=== PATIENT | male | born 1950 | race Caucasian/White ===

== ENCOUNTER 2016-07-06 16:55 | Inpatient (IN) | payer OTHER, MEDICARE ==
[~2016-07-06] VITALS: Ht 190.5 cm; Wt 181.4 kg
[~2016-07-06 16:55] MED LIST: A/B OTIC 54 MG/15 ML OT; AMLODIPINE BESYL5 M1 PO; AMLODIPINE10 MG PO; BYSTOLIC 5MG5 MG PO; CALCIUM-MAGNES1 EAC3 PO; CIPRO 500MG TA500 MG PO; LOSARTAN POTAS100 M1 PO; MELOXICAM7.5 M1 PO; MULTI-DAY VITA1 EACH PO; PERCOCET 325 MG1 TA2 PO; VITAMIN B COMP1 EACH PO; VITAMIN C500 M6 PO
--- NOTE | 2016-07-06 17:08 | ED GENERAL ADULT ---
History of Present Illness General Chief Complaint: Lower Extremity Problems Stated Complaint: BIBA FOR EVAL OF LEGS GIVING OUT Source: patient, old records, EMS Exam Limitations: no limitations Vital Signs & Intake/Output Vital Signs & Intake/Output Vital Signs Date Time Temp Pulse Resp B/P Pulse O2 O2 Flow FiO2 Ox Delivery Rate 07/08 0652 98.6 80 20 162/80 95 Room Air 07/07 2140 99.4 72 20 170/74 95 Room Air 07/07 1313 99.6 77 20 150/80 97 Room Air 07/07 1121 Room Air 07/07 0849 170/80 07/07 0849 170/80 07/07 0728 98.2 75 20 170/80 94 Room Air ED Intake and Output 07/08 0000 07/07 1200 Intake Total 1550 100 Output Total 1974 Balance -425 -100 Intake, IV 300 0 Intake, Oral 1250 100 Number 1 0 Bowel Movements Output, Urine 1974 200 Patient 400 lb Weight Allergies Coded Allergies: NO KNOWN ALLERGIES (06/14/11) Triage Nurses Notes Reviewed? yes Onset: Abrupt Duration: getting worse Timing: single episode today Severity: moderate Severity Numbers: 5 HPI: Patient is a 66-year-old male with a past medical history of hypertension, umbilical hernia, inguinal hernia, cellulitis, and morbid obesity and arthritis who presents emergency room brought in by ambulance for concerns of acute onset of weakness to the left knee and left hip upon walking downstairs today at his private residence where he slowly sat down on his steps in his house then slid down on the stairs to the first floor then called 911 for assistance. States that he has chronic left knee and left hip pain denies any traumatic events or fall today denies any mechanism of injury. Patient does take NSAIDs chronically for pain. Denies any fever chills or illness currently denies any lower extremity swelling chest pain and arm pain jaw pain abdominal pain. Patient was evaluated and admitted approximately 2 months ago for a mechanical fall however patient was unable to ambulate after this occurrence where he then was transferred to short-term rehabilitation area patient currently complains of 3/10 left knee and left hip pain upon movement however at rest she has no pain. iT WAS NOTED THROUGH OLD RECORDS THE PATIENT RECEIVED pain management in the emergency room was given Dilaudid and Toradol and Tylenol for his pain (ALYSON BRANTLEY,ZEYNEP) Reconcile Medications Amlodipine Besylate 5 MG TABLET 1 TAB PO DAILY BP (Reported) Ascorbate Calcium (Vitamin C) (Unknown Strength) TABLET (Unknown Dose) PO DAILY SUPPLEMENT (Reported) Ascorbic Acid (Vitamin C) 250 MG TABLET 1 TAB PO DAILY immune health ( Reported) Calcium Carb/Mag Oxide/Zinc Ox (Gruficq-Gcatzedte-Xszh Caplet) (Unknown Strength ) TABLET (Unknown Dose) PO DAILY SUPPLEMENT (Reported) Losartan Potassium 100 MG TABLET 1 TAB PO DAILY BP (Reported) Meloxicam 7.5 MG TABLET 1 TAB PO DAILY PAIN/INFLAMMATION (Reported) Multivitamin (Multi-Day Vitamins) 1 EACH TABLET 1 TAB PO DAILY SUPPLEMENT ( Reported) Valacyclovir Hydrochloride (Valtrex) 500 MG TABLET 1,000 MG PO TID shingles Vitamin B Complex 1 EACH CAPSULE 1 CAP PO DAILY SUPPLEMENT (Reported) (JASON BEAULIEU,GUILHERME Joya) Past History Travel History Traveled to [place] past 21 day No Medical History Any Pertinent Medical History? see below for history Neurological: NONE EENT: NONE Cardiovascular: hypertension Respiratory: SOB ON EXERTION Gastrointestinal: umbilical hernia, INGUINAL HERNIA Hepatic: NONE Renal: benign prost hyperplasia Musculoskeletal: L ELBOW DISLOCATION CELLULITIS Psychiatric: NONE Endocrine: NONE Blood Disorders: NONE Cancer(s): NONE RECORD CLERK/Reproductive: NONE Other Medical Hx: Obesity History of MRSA: No History of VRE: No History of CDIFF: No Surgical History Surgical History: OSTEO ON RIGHT FOOT DEBRIDEMENT BY MINDI UMBILICAL HERNIA TONSILLECTOMY ABDOMINAL HERNIA RIGHT QUAD SURGERY Psychosocial History Who do you live with Patient/Self Services at Home None What is your primary language [place]inean Family History Family History, If Any: FATHER (HTN, CAD). ; Cause: CVA (cerebral vascular accident). Hx Contributory? No (ZEYNEP MILLAN) Review of Systems Review of Systems Constitutional: Reports: see HPI, weakness. EENTM: Reports: no symptoms. Respiratory: Reports: no symptoms. Cardiovascular: Reports: no symptoms. GI: Reports: no symptoms. Genitourinary: Reports: no symptoms. Musculoskeletal: Reports: see HPI, joint pain. Skin: Reports: no symptoms. Neurological/Psychological: Reports: no symptoms. Hematologic/Endocrine: Reports: no symptoms. Immunologic/Allergic: Reports: no symptoms. All Other Systems: Reviewed and Negative (ZEYNEP MILLAN) Physical Exam Physical Exam General Appearance: no apparent distress, comfortable, obese Comments: HEENT: Normal EENT exam, extraocular motion intact, no nystagmus. Pupils equally round and reactive to light and accommodation. Nose is atraumatic. External auditory canal and Tympanic membranes clear. Pharynx normal. No swelling or edema. Neck: Supple, no lymphadenopathy, normal range of motion without pain or tenderness Back: Nontender, no CVA tenderness. Cardiovascular: Regular rate and rhythms no murmurs rubs or gallops, normal JVP Respiratory: Chest nontender. No respiratory distress.breath sounds clear to auscultation bilaterally Abdomen: Soft, nontender nondistended, no appreciable organomegaly. Normal bowel sounds. No ascites Extremity: No edema, no calf tenderness to palpation, normal and equal pulses. Left knee normal INSPECTION, mild generalized point tenderness noted patient unable to perform straight leg raise Left knee normal inspection patient able to flex knee to 90 with mild pain generalized point tenderness noted upon palpation Bilateral lower extremity dermatomes intact pedal pulse +2 Neuro: Alert oriented x3, motor sensory normal, Skin: skin is warm and dry. Psych: Mood and affect is normal, memory and judgment is normal. Core Measures ACS in differential dx? No CVA/TIA Diagnosis: No Severe Sepsis Present: No Septic Shock Present: No (ZEYNEP MILLAN) Progress Differential Diagnoses I considered the following diagnoses in my evaluation of the patient: [ Electrolyte abnormality, DVT, fracture, osteoarthritis, chronic pain, morbid obesity, sepsis] Plan of Care: Orders Procedure Date/time Status Heart Healthy Diet 07/07 D Active Pain Treatment and Response 07/07 1225 Active Change service to 07/07 0735 Active Therapeutic Activities 07/07 UNK Complete PT EVAL LOW COMPLEX 20 MIN 07/07 UNK Complete Gait Training 07/07 UNK Complete House Staff 07/07 UNK Active Current Medications Sig/Fany Start time Last Medication Dose Stop Time Status Admin Amlodipine Besylate 10 MG DAILY 07/08 1000 AC (Norvasc) Acetaminophen 1,000 MG Q6P PRN 07/07 0930 AC (Ofirmev) N/A 1 UNIT (No Carrier) Laboratory Tests 07/07/16 0710: Vitamin B12 244 07/07/16 0710: 25-OH Vitamin D Total 25.1 L, TSH 1.900 Patient currently is in no apparent distress however patient on exam shows significant limitation in his left lower extremity. Patient was able to minimally weight bear however was unable to ambulate. Patient has unremarkable x-ray and blood work at this time however due to inability to ambulate and multifunctional gait dysfunction A physical therapy consult was ordered patient was given IV ketorolac for pain It is noted that patient has significant comorbidities of knee pain hip pain morbid obesity and due to patient's gait disturbance and significant decline of baseline active daily living function that sending patient home will be a significant fall risk and detrimental to the patient. Patient will be admitted for physical therapy consultation IV pain medication management and possible short-term placement for physical therapy and rehabilitation. Discussed patient with case management who approved of admission (ZEYNEP MILLAN) Diagnostic Imaging: Viewed by Me: Radiology Read. Radiology Impression: no fracture Initial ED EKG: SINUS RHYTHM NOTED AT 75 BPM FIRST-DEGREE av BLOCK Prior EKG: unchanged Comments: PATIENT: IAN MODI PRESENT AGE: 66 PATIENT ACCOUNT NO: [id number] : 50 LOCATION: [facility] ORDERING PHYSICIAN: ZEYNEP BRANTLEY SERVICE DATE: 07/06/16 EXAM TYPE: RAD - XRY-HIP 2-3 VIEWS, LEFT; XRY-KNEE COMPLETE LEFT EXAMINATION: XR HIP, LEFT XR LEFT KNEE CLINICAL INFORMATION: Chronic left hip and left knee pain. COMPARISON: Plain films of the left hip 05/02/2016. MRI of the left knee 01/21/2011. TECHNIQUE: AP and frog-leg lateral views of the left hip. 7 views of the left knee including AP, lateral and bilateral oblique views. FINDINGS: Left hip: Multiple views of the left hip demonstrate advanced osteoarthrosis of the left hip joint, characterized by joint space narrowing, subchondral sclerosis and subchondral cyst formation. No acute fracture or dislocation of the left hip is identified. Left knee: There are moderate degenerative changes of the left knee joint, notably within the lateral tibiofemoral compartment. No acute fracture or dislocation of the left knee is identified. There is no significant suprapatellar left knee joint effusion. IMPRESSION: 1. Advanced osteoarthrosis of the left hip joint, without visible fracture or dislocation. 2. Moderate degenerative changes of the left knee joint, notably within the lateral tibiofemoral compartment. No acute fracture or dislocation of the left knee. (ZEYNEP MILLAN) Departure Departure Disposition: STILL A PATIENT Condition: Stable Clinical Impression Primary Impression: Left hip pain Secondary Impressions: Gait abnormality, Left knee pain Referrals: TOOTIE DURBIN APRN (PCP/Family) Departure Forms: Customer Survey General Discharge Information Admission Note Spoke With: RHEA MCGEE MD Documentation of Exam: Documentation of any treatments & extenuating circumstances including Concerns Regarding Discharge (functional status, medication knowledge or non-compliance, living conditions, etc.) that warrant an admission rather than observation: [ Discussed patient with Dr. MCGEE who agrees with [facility] admission for concerns of multifactorial gait disturbance, left leg pain and fall risk and which patient requires IV pain medication, physical therapy consultation and most likely short-term rehabilitation for symptoms. Outpatient treatment at this time due to significant fall risk and unable to ambulate would BE medically harmful] (ZEYNEP MILLAN) Departure Prescriptions: Current Visit Scripts Valacyclovir Hydrochloride (Valtrex) 1,000 MG PO TID 4 Days PA/BLOCK CUBER Co-Sign Statement Statement: ED Attending supervision documentation- [X] I saw and evaluated the patient. I have also reviewed all the pertinent lab results and diagnostic results. I agree with the findings and the plan of care as documented in the PA's/BLOCK CUBER's documentation. [X] I have reviewed the ED Record and agree with the PA's/BLOCK CUBER's documentation. [] Additions or exceptions (if any) to the PAs/BLOCK CUBER's note and plan are summarized below: [] (JASON BEAULIEU,GUILHERME Joya) Critical Care Note Critical Care Note Critical Care Time: non-applicable (ZEYNEP MILLAN) Admission Note Spoke With: RHEA MCGEE MD Documentation of Exam: Documentation of any treatments & extenuating circumstances including Concerns Regarding Discharge (functional status, medication knowledge or non-compliance, living conditions, etc.) that warrant an admission rather than observation: [ Discussed patient with Dr. MCGEE who agrees with [facility] admission for concerns of multifactorial gait disturbance, left leg pain and fall risk and which patient requires IV pain medication, physical therapy consultation and most likely short-term rehabilitation for symptoms. Outpatient treatment at this time due to significant fall risk and unable to ambulate would BE medically harmful] (ZEYNEP MILLAN) PA/BLOCK CUBER Co-Sign Statement Statement: ED Attending supervision documentation- [X] I saw and evaluated the patient. I have also reviewed all the pertinent lab results and diagnostic results. I agree with the findings and the plan of care as documented in the PA's/BLOCK CUBER's documentation. [X] I have reviewed the ED Record and agree with the PA's/BLOCK CUBER's documentation. [] Additions or exceptions (if any) to the PAs/BLOCK CUBER's note and plan are summarized below: [] (JASON BEAULIEU,GUILHERME Joya) Critical Care Note Critical Care Note Critical Care Time: non-applicable (ZEYNEP MILLAN)
[2016-07-06 18:16] LABS: ABSOLUTE BASOPHIL COUNT 0 /CUMM (0.0-0.2); ABSOLUTE EOSINOPHIL COUNT 0.1 /CUMM (0.0-0.7); ABSOLUTE GRANULOCYTE CT 6.4 /CUMM (1.4-6.5); ABSOLUTE LYMPH COUNT 0.8 /CUMM (1.2-3.4); BASOPHIL % 0.1 % (0.0-2.0); EOSINOPHIL % 0.8 % (0-5); GRANULOCYTE % 77.3 % (42.2-75.2); HEMATOCRIT 43.5 % (42-52); MEAN CORPUSCULAR HGB 29.5 PG (27.0-31.0); MEAN CORPUSCULAR HGB CONC 32.9 G/DL (33.0-37.0); MEAN CORPUSCULAR VOLUME 89.7 FL (80.0-94.0); MEAN PLATELET VOLUME 9.5 FL (7.4-10.4); PLATELET COUNT 179 /CUMM (130-400); RBC DISTRIBUTION WIDTH 14.7 % (11.5-14.5); RED BLOOD CELL CT 4.85 /CUMM (4.70-6.10); WHITE BLOOD CELL COUNT 8.2 /CUMM (4.8-10.8)
--- NOTE | 2016-07-06 18:48 | RADIOLOGY REPORT ---
EXAMINATION: XR HIP, LEFT XR LEFT KNEE CLINICAL INFORMATION: Chronic left hip and left knee pain. COMPARISON: Plain films of the left hip 05/02/2016. MRI of the left knee 01/21/2011. TECHNIQUE: AP and frog-leg lateral views of the left hip. 7 views of the left knee including AP, lateral and bilateral oblique views. FINDINGS: Left hip: Multiple views of the left hip demonstrate advanced osteoarthrosis of the left hip joint, characterized by joint space narrowing, subchondral sclerosis and subchondral cyst formation. No acute fracture or dislocation of the left hip is identified. Left knee: There are moderate degenerative changes of the left knee joint, notably within the lateral tibiofemoral compartment. No acute fracture or dislocation of the left knee is identified. There is no significant suprapatellar left knee joint effusion. IMPRESSION: 1. Advanced osteoarthrosis of the left hip joint, without visible fracture or dislocation. 2. Moderate degenerative changes of the left knee joint, notably within the lateral tibiofemoral compartment. No acute fracture or dislocation of the left knee.
--- NOTE | 2016-07-07 00:30 | History & Physical ---
SUNDEEP BEAULIEU,LANDEN 07/07/16 0029: General Information and HPI MD Statement: I have seen and personally examined IAN MODI and documented this H&P. The patient is a 66 year old M who presented with a patient stated chief complaint of []. Source of Information: old records Exam Limitations: no limitations History of Present Illness: Patient is a 66-year-old morbidly obese male with significant past medical history of hypertension, long-standing swelling of bilateral lower extremity, degenerative joint disease, right foot osteomyelitis needed debridement(MSSA) who presented to [facility] with sudden onset of weakness in left hip and knee. Patient claims that when he was going up stairs. He suddenly felt that his left hip and knee is giving away, so he grabbed nailing to prevent fall. He states that he did not fall. He denies of fever, chills, chest pain, diarrhea, constipation, urinary problems, dizziness, palpitation, blurry vision, recent flulike symptoms, dehydration, loss of appetite. Patient was admitted to the [facility] in April 2016 because of fall and leading to fracture of the nasal bone. He was placed for short-term rehabilitation, for around 2 weeks at [facility]. He got discharged from there on May 19. He denies of any fall since last 6 weeks. He never had any ENT follow-up and MRA. He was also complaining of bilateral long-standing leg swelling, but not on any Lasix. He was also complaining of tingling and numbness on lateral side of the left thigh. Patient claims that he is having history of severe arthritis and following Dr. Zamora. He was advised to have brace 3 weeks ago but still he didnt have it. He also got Steroid shot in left knee 2 weeks ago. Off note he cannt have hip surgery because of high BMI, he need to loose weight to get surgery done. 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 Family history -father of stroke, maternal uncle of coronary artery disease, mother of cancer Allergies/Medications Allergies: Coded Allergies: NO KNOWN ALLERGIES (06/14/11) Home Med list Amlodipine Besylate 5 MG TABLET 1 TAB PO DAILY BP (Reported) Ascorbate Calcium (Vitamin C) (Unknown Strength) TABLET (Unknown Dose) PO DAILY SUPPLEMENT (Reported) Ascorbic Acid (Vitamin C) 250 MG TABLET 1 TAB PO DAILY immune health ( Reported) Calcium Carb/Mag Oxide/Zinc Ox (Xxdrpgg-Fyoptucun-Gstd Caplet) (Unknown Strength ) TABLET (Unknown Dose) PO DAILY SUPPLEMENT (Reported) Losartan Potassium 100 MG TABLET 1 TAB PO DAILY BP (Reported) Meloxicam 7.5 MG TABLET 1 TAB PO DAILY PAIN/INFLAMMATION (Reported) Multivitamin (Multi-Day Vitamins) 1 EACH TABLET 1 TAB PO DAILY SUPPLEMENT ( Reported) Valacyclovir Hydrochloride (Valtrex) 500 MG TABLET 1,000 MG PO TID shingles Vitamin B Complex 1 EACH CAPSULE 1 CAP PO DAILY SUPPLEMENT (Reported) Compliance With Home Meds: GOOD Past History Travel History Traveled to [place] past 21 day No Medical History Neurological: NONE EENT: NONE Cardiovascular: hypertension Respiratory: SOB ON EXERTION Gastrointestinal: umbilical hernia, INGUINAL HERNIA Hepatic: NONE Renal: benign prost hyperplasia Musculoskeletal: L ELBOW DISLOCATION CELLULITIS Psychiatric: NONE Endocrine: NONE Blood Disorders: NONE Cancer(s): NONE EMPLOYMENT DIRECTOR/Reproductive: NONE Other Medical Hx: Obesity History of MRSA: No History of VRE: No History of CDIFF: No Surgical History Surgical History: OSTEO ON RIGHT FOOT DEBRIDEMENT BY MINDI UMBILICAL HERNIA TONSILLECTOMY ABDOMINAL HERNIA RIGHT QUAD SURGERY Past Family/Social History Family History Relations & Conditions if any FATHER (HTN, CAD). ; Cause: CVA (cerebral vascular accident). MOTHER (cancer). MOTHER (maternal uncle of CAD). Psychosocial History Who Do You Live With? self Services at Home: None Primary Language: Albanian ETOH Use: occasional use Illicit Drug Use: denies illicit drug use Functional Ability ADLs Independent: dressing, eating, toileting, bathing. Ambulation: walker IADLs Independent: shopping, housework, finances, food prep, telephone, transportation , medication admin. Review of Systems Review of Systems Constitutional: Denies: no symptoms. EENTM: Denies: no symptoms. Cardiovascular: Denies: no symptoms. Respiratory: Denies: no symptoms. GI: Denies: no symptoms. Genitourinary: Denies: no symptoms. Musculoskeletal: Reports: joint pain, joint swelling, muscle pain, muscle stiffness. Skin: Denies: no symptoms. Neurological/Psychological: Denies: anxiety, depressed. Exam & Diagnostic Data Last 24 Hrs of Vital Signs/I&O Vital Signs Date Time Temp Pulse Resp B/P Pulse O2 O2 Flow FiO2 Ox Delivery Rate 07/07 0108 98.2 74 18 175/78 98 Room Air 07/06 2156 98.5 85 18 178/79 99 Room Air 07/06 2130 Room Air 07/06 1701 98.5 85 18 183/81 98 Room Air Intake & Output 07/07 0800 07/07 0000 07/06 1600 Intake Total Output Total 700 Balance -700 Output, Urine 700 Patient 179.169 kg Weight Physical Exam General Appearance Alert, Oriented X3, Cooperative, No Acute Distress, morbidly obese Skin multiple vesicular rash at the left bucttock, in L-S dermatomal region, HEENT Atraumatic, PERRLA, EOMI Neck Supple, No JVD Cardiovascular Normal S1, Normal S2 Lungs Clear to Auscultation, Normal Air Movement Abdomen Soft, No Tenderness, severy distended Neurological Normal Speech Extremities bilateral leg swelling , pitting edema, right ankle is swollen with scar jaqueline of previouse surgery on dorsum of right foot, redness in medial side of thigh, redness in inguinal region. Vascular Normal Pulses, Pulses Symmetrical Last 24 Hrs of Labs/Loco: Laboratory Tests 07/06/16 2020: Urine Color YEL, Urine Clarity CLEAR, Urine pH 6.5, Ur Specific [place] 1.010, Urine Protein NEG, Urine Ketones NEG, Urine Nitrite NEG, Urine Bilirubin NEG, Urine Urobilinogen 0.2, Ur Leukocyte Esterase TRACE H, Ur Microscopic SEDIMENT EXAMINED, Urine WBC 1-3 H, Urine Hemoglobin NEG, Urine Glucose NEG 07/06/16 1757: Anion Gap 12, Estimated GFR > 60, BUN/Creatinine Ratio 21.1, Glucose 92, Calcium 9.6, Total Bilirubin 0.9, AST 28, ALT 36, Alkaline Phosphatase 100, Total Protein 6.8, Albumin 4.1, Globulin 2.7, Albumin/Globulin Ratio 1.5, CBC w Diff NO MAN DIFF REQ, RBC 4.85, MCV 89.7, MCH 29.5, RDW 14.7 H, MPV 9.5, Gran % 77.3 H, Lymphocytes % 9.3 L, Monocytes % 12.5 H, Eosinophils % 0.8, Basophils % 0.1, Absolute Granulocytes 6.4, Absolute Lymphocytes 0.8 L, Absolute Monocytes 1.0 H, Absolute Eosinophils 0.1, Absolute Basophils 0, PUBS MCHC 32.9 L Microbiology 07/06 2019 URINE ROUT: Urine Culture - RECD Diagnostic Data EKG Results NSR, HR-75, Other Results XRY-HIP 2-3 VIEWS, LEFT; XRY-KNEE COMPLETE LEFT 1. Advanced osteoarthrosis of the left hip joint, without visible fracture or dislocation. 2. Moderate degenerative changes of the left knee joint, notably within the lateral tibiofemoral compartment. No acute fracture or dislocation of the left knee Assessment/Plan Assessment: Patient is a 66-year-old morbidly obese male with significant past medical history of hypertension, long-standing swelling of bilateral lower extremity, degenerative joint disease, right foot osteomyelitis needed debridement(MSSA) who presented to [facility] with sudden onset of weakness in left hip and knee. Vital signs at the time of admission temperature 98.5, pulse 85, respiratory rate 18, blood pressure 183/81, SPO2 98% on room air Problem list- Herpes Zoster of left L-S dermatome Intertriginiouse infection of both inguinal area (javed) Bilateral lower extremity edema, not on Lasix Hypertension History of right foot debridement due to MSSA osteomyelitis History of umbilicus hernia (repair 20 years ago) History of right inguinal hernia BPH History of left elbow dislocation and cellulitis History of quadriceps surgery in the right thigh, 3 and half years ago History of tonsillectomy Plan - Herpes Zoster of left L-S dermatome * We will start patient on Tab Valtrex 1 gram 3 times a day for total 7 days Intertriginous infection of inguinal region possible candidiasis - * We will advise to keep area dry and use Nystatin powder QID. Degenerative joint disease, possible osteoarthritis - * We will start patient on because tight * We'll monitor the vitals every shift * We will give pain medication as before including meloxicam, plus Tylenol and if needed and Toradol * Physical therapy * Patient needs admission to place in short-term rehabilitation Hypertension - * We will monitor blood pressure every shift * We will continue amlodipine as before * We will advise for low-salt diet * Will also advised for weight loss and regular exercise Diet - heart healthy, weight loss DVT prophylaxis -ALP S/heparin CODE STATUS-full code As Ranked By This Provider Problem List: 1. Herpes zoster 2. Morbid obesity 3. Intertriginous candidiasis Core Measures/Miscellaneous Acute Coronary Syndrome ACS Diagnosis: No Cerebrovascular Accident CVA/TIA Diagnosis: No Congestive Heart Failure CHF Diagnosis: No Venous Thromboembolism VTE Risk Factors: Age > 40 VTE Prophylaxis Ordered Inpt: Mechanical (ALPS/TEDS) No Mech VTE prophylaxis d/t: No contraindications No VTE Pharm Prophylaxis d/t: No contraindications VTE Diagnosis: No VTE Type: NONE VTE Confirmed by (Test): NONE Severe Sepsis Severe Sepsis Present: No Septic Shock Septic Shock Present: No Miscellaneous Documentation Attending [facility] Primary Care Physician: TOOTIE DURBIN APRN Patient sees these Specialists Dr zmaora Level of Patient Care: General Medicine FRANCISCO PA 07/07/16 0029: Resident Review Statement Resident Statement: discussed with recruitment internship Other Findings: He is 66-year-old morbidly obese man with past medical history of osteoarthritis , hypertension, osteomyelitis of right foot (MSSA, was on oxacillin for 4 weeks) . He was recently here in [facility] in April 2016 for upper nasal bone fracture. Maxillofacial CT head and incidental finding of dilated superior ophthalmic veins bilaterally. Patient could not fit in our MRI machine so he was advised to have an MRA/MRV to rule out cavernous sinus pathology as an outpatient and he never went for that. This time he was BIBA for left leg weakness. According to patient he was walking upstairs and all of a sudden his left leg gave out. He grabbed side railing and so he sat down on stairs. He denies any fall. He reports that since his discharge from [facility] in May 2016 his left leg has become weaker and weaker. He sees Dr. Zamora for his osteoarthritis and last saw him 3 weeks ago. He was recommended to wear a leg brace and special leg brace was ordered but he has not got it yet. He also feels pain in his left knee and left hip. He has been getting cortisone shots in his left knee by Dr. Zamora. He is not a candidate for surgery because of his obesity. He takes meloxicam and acetaminophen for pain management. He lives alone. Walks with cane or walker. Denies smoking, drinking alcohol or use of illicit drugs. His family history is positive for stroke in his father and heart disease in mother. Vitals on admission: Temperature 98.5, pulse 85, respiratory rate 18, blood pressure 183/81 and oxygen saturation 98% on room air Positive physical exam findings: Obese zeus, there is a vesicular rash suggestive for shingles on her left buttock extending to the front, not crossing the midline. He also has fungal infection in his abdominal fold. 1+ pitting edema bilateral lower extremities. Pain in left knee upon examination for range of motion. Fungal infection bilateral foot toes. Vertical scar on right knee. Blood work including CBC and BEP is normal. UA showing trace leukocyte esterase and 1-3 WBCs. EKG: Normal sinus rhythm with heart rate 75. NE interval 224. QTc 443. No acute ST-T wave changes Left hip and knee x-ray shows advanced osteoarthritis without any fracture or dislocation. In ER he was given Toradol 30 mg IV 1. Patient was attempted to ambulate in ER but he reported that he is unable to stand and refused to continue attempts to ambulate. Assessment and plan He is morbidly obese 66-year-old man with above-mentioned past medical history is going to be admitted on general medicine floor. Problem list 1. Physical deconditioning and impaired mobility 2. Chronic left hip and knee pain 3. Shingles on left buttock. Rash is extending upto the front of his abdomen 4. History of hypertension 5. Candidal infection in lower abdominal fold PLAN Monitor vitals every shift. Pain management with meloxicam and IV Toradol. We will continue all his home medications. Physical therapy evaluation and treatment. Patient needs placement in a facility. For shingles we will start him on Valtrex 1 g 3 times a day. Nystatin powder for candidal infection. Subcutaneous Lovenox for DVT prophylaxis. Pain management pathway. Heart healthy diet. Patient is full code. ARELY BEAULIEU, [facility] 07/07/16 0525: Attending MD Review Statement Attending Statement Attending MD Statement: examined this patient, discuss w/resident/PA/[employer], agreed w/resident/PA/[employer] Attending Assessment/Plan: 66 yo morbidly obese M with h/o HTN, OA, previous osteomyelitis of right foot, b /l LE edema, recently admitted to [facility] (05/02 05/05) for fall and nasal fracture, subsequently discharged to SNF for 2 weeks, is here with left knee pain and weakness resulting in him dropping down to the floor on his buttock, with no head trauma or LOC. He reports his lower extremity weakness has slowly progressed, wherein he saw Ortho Dr. Zamora and received cortisone shots into his left knee for OA as he is not a surgical candidate. He is awaiting a special leg brace. He denies any new rashes to his body. Post recent discharge, patient did not follow up with ENT yet and has not undergone an MRA/MRV to exclude cavernous sinus pathology. Vitals stable except for hypertension. Examination reveals erythematous vesicular rash over left buttock (lumbar dermatome) extending towards the left groin and lower abdomen, not crossing the midline. Fungal rash noted to the right groin. Patient unaware of the vesicular rash. Bilateral LE edema 2+. Labs unremarkable. Hip/knee Xray shows advanced osteoarthrosis left hip joint, no fracture or dislocation, degenerative changes of left knee joint. EKG: SR no acute changes. 1. 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 GM admit, fall precautions, check vit D, B12, TSH. Unclear duration of zoster, will initiate treatment with Valcyclovir. Pain management. PT eval and possible placement. 2. HTN. Continue amlodipine and losartan. DVT ppx lovenox. Full code.
[2016-07-07 02:36] VITALS: BP 180/90
--- NOTE | 2016-07-07 05:02 | Admission Certification ---
Admission Certification Certification Statement - As attending physician, I certify that at the time of - admission, based on clinical presentation, severity of - symptoms, need for further diagnostic testing and - therapeutic interventions, and risk of adverse outcomes - without in-hospital treatment, in my clinical assessment, - this patient requires an acute hospital stay for a minimum - of two nights or longer. I have also considered psychsocial - factors such as support system, advanced age, financial - issues, cognitive issues, and failed out-patient treatments, - past re-admission history, safety of patient, and lack of - compliance as applicable. Specific rationale supporting this admission is: Lower extremity weakness, knee pain, gait instability. Possible motor neuropathy in the setting of Shingles.
[2016-07-07 07:28] VITALS: BP 170/80
--- NOTE | 2016-07-07 07:35 | PN- Housestaff ---
RONAL COVINGTON 07/07/16 0733: Subjective Follow-up For: Herpes zoster Subjective: Mr. Paige was comfortable this morning. Did not have any complaints. Vitals were stable overnight. He remained afebrile. Blood pressure was slightly elevated this a.m. did not have any complaints. We discussed in great detail about decreasing the dose of NSAIDs, while continuing the use of acetaminophen. These would benefit both controlling blood pressure and limited the injury to kidney/GI tract. Review of Systems Constitutional: Reports: see HPI. Objective Last 24 Hrs of Vital Signs/I&O Vital Signs Date Time Temp Pulse Resp B/P Pulse O2 O2 Flow FiO2 Ox Delivery Rate 07/07 0728 98.2 75 20 170/80 94 Room Air 07/07 0236 98.2 86 20 180/90 97 Room Air 07/07 0133 98.5 67 18 169/74 99 Room Air 07/07 0108 98.2 74 18 175/78 98 Room Air 07/06 2156 98.5 85 18 178/79 99 Room Air 07/06 2130 Room Air 07/06 1701 98.5 85 18 183/81 98 Room Air Intake & Output 07/07 0800 07/07 0000 07/06 1600 Intake Total Output Total 200 700 Balance -200 -700 Output, Urine 200 700 Patient 395 lb Weight Physical Exam General Appearance: No Acute Distress Other Physical Findings: General Exam: AAOx3, No acute distress, Skin: No rashes, no breakdown HEENT: PERRLA, EOMI Neck: Supple, No JVD No cervical lymphadenopathy CVS: Reg Rate, Normal S1,S2, No MGR Resp: Normal air entry, no ronchi/rales Abdomen: Soft, No tenderness, Normal Bowel Sounds Neuro: Normal Speech, Strength 5/5 b/l x 4 extremities, Sensation intact, CN III -XII NL, Reflexes 2+ Extremities: No cyanosis, pedal edema 1+ Current Medications: Current Medications Sig/Fany Start time Last Medication Dose Route Stop Time Status Admin Amlodipine Besylate 5 MG DAILY 07/07 1000 AC PO Ascorbic Acid 500 MG DAILY 07/07 1000 AC PO Enoxaparin Sodium 40 MG DAILY 07/07 1000 AC SC Ibuprofen 7.5 MG DAILY 07/07 1000 CAN PO Ketorolac 15 MG Q8P PRN 07/07 0030 AC Tromethamine IV Ketorolac 0 .STK-MED ONE 07/06 2158 DC Tromethamine .ROUTE Ketorolac 30 MG ONCE ONE 07/06 1714 DC 07/06 Tromethamine IV 07/06 Losartan Potassium 100 MG DAILY 07/07 1000 AC PO Meloxicam 7.5 MG DAILY 07/07 1000 AC PO Multivitamins 1 TAB DAILY 07/07 1000 AC Therapeutic PO Nystatin 1 DRAGAN BID 07/07 0024 AC TOP Valacyclovir HCl 1,000 MG TID 07/07 0030 AC PO Last 24 Hrs of Lab/Loco Results Last 24 Hrs of Labs/Mics: Laboratory Tests 07/07/16 0710: Vitamin B12 Pending 07/07/16 0710: 25-OH Vitamin D Total Pending, TSH Pending 07/06/162019: Urine Color YEL, Urine Clarity CLEAR, Urine pH 6.5, Ur Specific [place] 1.010, Urine Protein NEG, Urine Ketones NEG, Urine Nitrite NEG, Urine Bilirubin NEG, Urine Urobilinogen 0.2, Ur Leukocyte Esterase TRACE H, Ur Microscopic SEDIMENT EXAMINED, Urine WBC 1-3 H, Urine Hemoglobin NEG, Urine Glucose NEG 07/06/16 1757: Anion Gap 12, Estimated GFR > 60, BUN/Creatinine Ratio 21.1, Glucose 92, Calcium 9.6, Total Bilirubin 0.9, AST 28, ALT 36, Alkaline Phosphatase 100, Total Protein 6.8, Albumin 4.1, Globulin 2.7, Albumin/Globulin Ratio 1.5, CBC w Diff NO MAN DIFF REQ, RBC 4.85, MCV 89.7, MCH 29.5, RDW 14.7 H, MPV 9.5, Gran % 77.3 H, Lymphocytes % 9.3 L, Monocytes % 12.5 H, Eosinophils % 0.8, Basophils % 0.1, Absolute Granulocytes 6.4, Absolute Lymphocytes 0.8 L, Absolute Monocytes 1.0 H, Absolute Eosinophils 0.1, Absolute Basophils 0, PUBS MCHC 32.9 L Microbiology 07/06 2019 URINE ROUT: Urine Culture - RECD Assessment/Plan Assessment: He is an older man w/ a PMH of bilateral lower extremity swelling is being evaluated for multiple falls, pain in bilateral knees and hip. At the time of admission, vitals-temperature 98.5, pulse rate 85, respiratory rate 18, blood pressure 183/81 (elevated), 98% on room air. On examination, noted to have vesicular skin rash in left lumbosacral region. Lab findings indicated W BC 8.2, hemoglobin 14.3, platelets 179, normal electrolytes sodium 143, potassium 4.4, normal renal function BUN 19, serum creatinine 0.9. Radiological [id number] hip showed advanced osteoarthritis of left hip joint with no acute fractures. Also degenerative changes were seen on left knee joint. No acute fractures or effusion was noted. Slight Admission diagnosis: #1 deconditioning #2 herpes zoster (non disseminated). Below is the problem list and plan: #1 multiple falls-likely due to deconditioning from obesity. Slightly low for serum creatinine, is indicative of lower muscle mass. Also has osteoarthritis at multiple joints, likely from obesity. Physical therapy evaluation and treatment. History of corticosteroid injections (intra-articular). No radiological tests such as CT scan-head indicated at this time. #2 pain management-has been using NSAIDs for a long time, and would be prudent to limit the use of NSAIDs view of kidney injury. Tylenol 1000 mg 3 times a day. Meloxicam at a low-dose. Monitor for GI symptoms. #3 rash-currently vesicular and several crusted lesions found on left lumbosacral region not crossing the midline. Has been started on valacyclovir 1 g 3 times a day. Continue antiviral for a total of 7 days. Pain medication as needed. Contact precautions. No airborne precautions necessary at this time unless the patient has disseminated zoster. #4 hypertension-currently on 100 mg losartan and 5 mg amlodipine. Blood pressure slightly elevated during the day, and may increase the dose of amlodipine to 10 mg daily. Continue to monitor closely. Salt restricted diet. #5 obesity-blood sugar levels within normal limits. He is likely an insulin sensitive individual. Check HbA1c. #6 DVT prophylaxis-Lovenox. Problem List: 1. Intertriginous candidiasis 2. Herpes zoster 3. Obesity Pain Ratin Pain Location: Bilateral lower extremities-especially in the knees. Pain Goal: Pain 4 or less Pain Plan: Tylenol 1000 mg by mouth 3 times a day Meloxicam. Tomorrow's Labs & Rationales: No labs necessary. Patient is stable. DENISSE BEAULIEU,CYNTHIA 07/07/16 1245: Attending MD Review Statement Attending Statement Attending MD Statement: examined this patient, discuss w/resident/PA/STRATEGIC PLANNER, agreed w/resident/PA/STRATEGIC PLANNER, reviewed EMR data (avail), discussed with nursing, discussed with case mgmt, reviewed images, amended to note Attending Assessment/Plan: Patient seen and examined, feels okay. He still has some pain in his knees. He denies any pain at the herpes rash site. Vital Signs Date Time Temp Pulse Resp B/P Pulse O2 O2 Flow FiO2 Ox Delivery Rate 07/07 1121 Room Air 07/07 0849 170/80 07/07 0849 17080 07/07 0728 98.2 75 20 170/80 94 Room Air 07/07 0300 97 Room Air 07/07 0236 98.2 86 20 180/90 97 Room Air 07/07 0133 98.5 67 18 169/74 99 Room Air 07/07 0108 98.2 74 18 175/78 98 Room Air 07/06 2156 98.5 85 18 178/79 99 Room Air 07/06 2130 Room Air 07/06 1701 98.5 85 18 183/81 98 Room Air on exam; aox3, nad. cv; s1,s2, rrr. resp; clera. abd; soft, nt, bs+ ext; 1+edema. skin; + herpes rash at the left lumbar, lfet lower lateral back. Laboratory Tests 07/07 07/07 07/06 0710 0710 2019 Chemistry Vitamin B12 (239 - 931 pg/mL) 244 25-OH Vitamin D Total (30 - 100 ng/ml) 25.1 L TSH (0.270 - 4.200 uIU/mL) 1.900 Urines Urine Color (YEL,AMB,STR) YEL Urine Clarity (CLEAR) CLEAR Urine pH (5.0 - 8.0) 6.5 Ur Specific [place] (1.001 - 1.035) 1.010 Urine Protein (NEG,<30 MG/DL) NEG Urine Ketones (NEG) NEG Urine Nitrite (NEG) NEG Urine Bilirubin (NEG) NEG Urine Urobilinogen (0.1 - 1.0 EU/dl) 0.2 Ur Leukocyte Esterase (NEG) TRACE H Ur Microscopic SEDIMENT EXAMINED Urine WBC (0 - 2 /HPF) 1-3 H Urine Hemoglobin (NEG) NEG Urine Glucose (N MG/DL) NEG 07/06 1756 Chemistry Sodium (137 - 145 mmol/L) 143 Potassium (3.5 - 5.1 mmol/L) 4.4 Chloride (98 - 107 mmol/L) 105 Carbon Dioxide (22 - 30 mmol/L) 26 Anion Gap (5 - 16) 12 BUN (9 - 20 mg/dL) 19 Creatinine (0.7 - 1.2 mg/dL) 0.9 Estimated GFR (>60 ml/min) > 60 BUN/Creatinine Ratio (7 - 25 %) 21.1 Glucose (65 - 99 mg/dL) 92 Calcium (8.4 - 10.2 mg/dL) 9.6 Total Bilirubin (0.2 - 1.3 mg/dL) 0.9 AST (17 - 59 U/L) 28 ALT (21 - 72 U/L) 36 Alkaline Phosphatase (< 127 U/L) 100 Total Protein (6.3 - 8.2 g/dL) 6.8 Albumin (3.5 - 5.0 g/dL) 4.1 Globulin (1.9 - 4.2 gm/dL) 2.7 Albumin/Globulin Ratio (1.1 - 2.2 %) 1.5 Hematology CBC w Diff NO MAN DIFF REQ WBC (4.8 - 10.8 /CUMM) 8.2 RBC (4.70 - 6.10 /CUMM) 4.85 Hgb (14.0 - 18.0 G/DL) 14.3 Hct (42 - 52 %) 43.5 MCV (80.0 - 94.0 FL) 89.7 MCH (27.0 - 31.0 PG) 29.5 RDW (11.5 - 14.5 %) 14.7 H Plt Count (130 - 400 /CUMM) 179 MPV (7.4 - 10.4 FL) 9.5 Gran % (42.2 - 75.2 %) 77.3 H Lymphocytes % (20.5 - 51.1 %) 9.3 L Monocytes % (1.7 - 9.3 %) 12.5 H Eosinophils % (0 - 5 %) 0.8 Basophils % (0.0 - 2.0 %) 0.1 Absolute Granulocytes (1.4 - 6.5 /CUMM) 6.4 Absolute Lymphocytes (1.2 - 3.4 /CUMM) 0.8 L Absolute Monocytes (0.10 - 0.60 /CUMM) 1.0 H Absolute Eosinophils (0.0 - 0.7 /CUMM) 0.1 Absolute Basophils (0.0 - 0.2 /CUMM) 0 PUBS MCHC (33.0 - 37.0 G/DL) 32.9 L A/P; 66-year-old male with past medical history significant for hypertension, osteoarthritis, history of ostium myelitis in the past who is admitted with near fall. Patient had difficulty ambulating secondary to pain in bilateral knees. He also has herpes zoster rash. Currently patient's pain will be controlled with nonnarcotic regimen. He has been started on valacyclovir further herpes zoster. His blood pressure is also running high, he is on losartan and amlodipine. If blood pressure does not respond to these medications, we will go up on the dose of amlodipine. His imaging studies are negative for any fracture. DVT prophylaxis: Lovenox. Patient will be evaluated by physical therapy.
--- NOTE | 2016-07-07 08:10 | Discharge Summary ---
Visit Information Visit Dates Admission Date: 07/06/16 Discharge Date: 07/09/16 Hospital Course Course Attending Physician: DENISSE BEAULIEU,CYNTHIA Primary Care Physician: TOOTIE DURBIN APRN Hospital Course: This is a 66-year-old morbidly obese male with significant past medical history of hypertension, long-standing swelling of bilateral lower extremity, degenerative joint disease, right foot osteomyelitis needed debridement(MSSA) who presented to [facility] with sudden onset of weakness in left hip and knee. Vitals on admission: Temperature 98.5, pulse 85, respiratory rate 18, blood pressure 183/81 and oxygen saturation 98% on room air Positive physical exam findings: Obese, there is a vesicular rash suggestive for shingles on his left buttock extending to the front, not crossing the midline. He also has fungal infection in his abdominal fold. 1+ pitting edema bilateral lower extremities. Pain in left knee upon examination for range of motion. Fungal infection bilateral foot toes. Vertical scar on right knee. Blood work including CBC and BEP is normal. UA showing trace leukocyte esterase and 1-3 WBCs. EKG: Normal sinus rhythm with heart rate 75. CT interval 224. QTc 443. No acute ST-T wave changes Left hip and knee x-ray shows advanced osteoarthritis without any fracture or dislocation. In ER he was given Toradol 30 mg IV 1. Patient was attempted to ambulate in ER but he reported that he is unable to stand and refused to continue attempts to ambulate. He was subsequently admitted to the General Medicine floor for further management. Problem List: 1) Fall 2/2 Physical deconditioning and impaired mobility: Physical therapy consult was placed. Patient was started on Meloxicam and IV toradol for pain. Later on pain controlled with meloxicam and oral tylenol. 2) Shingles: This was though to be of unknown duration. He was started on Valtrex 1g TID. 3) Hypertension: As his blood pressure continued to be elevated during the hospitalization, his home dose of amlodipine 5 mg was increased to 10 mg on discharge. Please follow up with your BP readings. 4) Asymmetric swelling of lower extremities (left > right) He reports throbbing pain in his left leg 4/10 overnight with increased swelling. D-dimer revealed 333, Doppler ultrasound (06/29/16) didnt suggest any DVT. All his other home medications were continued, DVT PPx with SubQ Lovenox, Heart Healthy diet and Full Code status. Complications: None Allergies: Coded Allergies: NO KNOWN ALLERGIES (06/14/11) Significant Procedures: None Disposition Summary Disposition Principal Diagnosis: Fall in the setting of lower extremity weakness and gait instability Additional Diagnosis: Herpes Zostier HTN OA H/O Osteomyelitis of the Rt foot H/O fall complicated by a nasal fracture Discharge Disposition: SNF Discharge Instructions General Discharge Information Code Status: Full Code Patient's Diet: Heart Healthy Patient's Activity: As tolerated Follow-Up Instructions/Appts: Please make an appointment to see your PCP within one week from discharge. Please follow up with your vitamin D and calcium levels in 3 weeks Please follow up with your BP readings as norvasc dose increased to 10mg daily. Medications at Discharge Discharge Medications: Stop taking the following medications: Amlodipine Besylate (Amlodipine Besylate) 5 MG TABLET ORAL DAILY Qty = 30 Calcium Carb/Mag Oxide/Zinc Ox (Rsxrsxg-Okietskgl-[place] Caplet) (Unknown Strength ) TABLET ORAL DAILY Continue taking these medications: Meloxicam (Meloxicam) 7.5 MG TABLET 1 Tablet ORAL DAILY Qty = 30 Comments: Last Taken: 07/09/16 Time: 10AM Losartan Potassium (Losartan Potassium) 100 MG TABLET 1 Tablet ORAL DAILY Qty = 30 Comments: Last Taken: 07/09/16 Time: 10AM Multivitamin (Multi-Day Vitamins) 1 EACH TABLET 1 Tablet ORAL DAILY Comments: Last Taken: 07/09/16 Time: 10AM Ascorbate Calcium (Vitamin C) 500 MG TABLET ORAL DAILY Comments: Last Taken: 07/09/16 Time: 10AM Vitamin B Complex (Vitamin B Complex) 1 EACH CAPSULE 1 Capsule ORAL DAILY Comments: NOT GIVEN IN HOSPITAL Ascorbic Acid (Vitamin C) 250 MG TABLET 1 Tablet ORAL DAILY Comments: NOT GIVEN IN HOSPITAL Start taking the following new medications: Valacyclovir Hydrochloride (Valtrex) 500 MG TABLET 1,000 Milligram ORAL THREE TIMES DAILY Days = 4 No Refills Comments: Last Taken: 07/09/16 Time: 10AM Acetaminophen (Tylenol Extra Strength) 500 MG TABLET 1 Tablet ORAL THREE TIMES A DAY NEEDED as needed for pain 7-10 Qty = 21 No Refills Comments: Last Taken: 07/09/16 Time: 12AM Amlodipine Besylate (Amlodipine Besylate) 10 MG TABLET 1 Tablet ORAL DAILY Qty = 30 No Refills Comments: Last Taken: 07/09/16 Time: 10AM Cholecalciferol (Vitamin D3) (Vitamin D) 1,000 UNIT CAPSULE 1 Capsule ORAL DAILY Qty = 30 No Refills Comments: NOT GIVEN IN HOSPITAL Cyanocobalamin (Vitamin B-12) (B-12) 1,000 MCG TABLET 1 Tablet ORAL DAILY Qty = 30 No Refills Comments: Last Taken: 07/09/16 Time: 10AM Copies To: TOOTIE DURBIN APRN Attending MD Review Statement Documenting Attending: SERENA BEAULIEU,SUZAN Weaver Other Findings: Discharging physician is Dr. Suzan Gracia.
[2016-07-07] MEDS ORDERED: VALTREX500 M1 PO (08:11)
--- NOTE | 2016-07-07 08:13 | Patient Discharge Instructions ---
Discharge Instructions General Discharge Information You were seen/treated for: Fall secondary to physical deconditioning Shingles Special Instructions: Please make an appointment to see your PCP within one week from discharge. Please follow with Vitamin D and calcium levels in a week please f/u with your BP readings as norvasc increased. Diet Recommended Diet: Heart Healthy Activity Activity Self Limited: Yes Acute Coronary Syndrome Inclusion Criteria At DC or during hospital stay patient has or had the following: ACS DIAGNOSIS No Discharge Core Measures Meds if any: Prescribed or Continued at Discharge Meds if any: NOT Prescribed or Continued at Discharge Congestive Heart Failure Inclusion Criteria At DC or during hospital stay patient has or had the following: CHF DIAGNOSIS No Discharge Core Measures Meds if any: Prescribed or Continued at Discharge Meds if any: NOT Prescribed or Continued at Discharge Cerebrovascular accident Inclusion Criteria At DC or during hospital stay patient has or had the following: CVA/TIA Diagnosis No Discharge Core Measures Meds if any: Prescribed or Continued at Discharge Meds if any: NOT Prescribed or Continued at Discharge Venous thromboembolism Inclusion Criteria VTE Diagnosis No VTE Type NONE VTE Confirmed by (Test) NONE Discharge Core Measures - Per Current guidelines, there needs to be overlap - treatment for the first 5 days of Warfarin therapy. - If discharged on Warfarin prior to 5 days of - overlap therapy, the patient will need to be - assessed for post discharge needs including - *Post discharge parental anticoagulation - *Warfarin and/or parental anticoagulation education - *Follow up date to check INR post discharge At least 5 days overlap therapy as Inpatient No Meds if any: Prescribed or Continued at Discharge Note: Overlap Therapy is Warfarin and Anticoagulant Meds if any: NOT Prescribed or Continued at Discharge
[2016-07-07 13:13] VITALS: BP 150/80
[2016-07-07] MEDS ORDERED: VITAMIN C250 M3 PO (13:14)
--- NOTE | 2016-07-07 13:27 | PN- Student ---
Subjective Subjective: [CC]: Left knee and hip pain + weaknness [HPI]: Pt stated that he started to experience weakness in his (L) hip and (L) knee for the past several weeks. Usually crackles and popping are felt in the knee joints when going up and down stairs which he contributes to his arthritis related joint issues. He stated that when he goes down the stairs, he has to sit down and go one step at a time. The patient is obese (weighing well over 390 lbs ). He understands that his weight issues likely contributed to the joint problems. He denies a fall during this admission. He is on chronic NSAIDS for chronic joint pain. He has recently been treated w/ steroid shot to the joint for pain several weeks ago. However, he has recently been admitted to [place] on April 2016 due to a fall and nasal bone fracture, in where he was discharged to [facility] on May 19. The patient also comes in with what appears to be herpes zoster outbreak in the (L) lower posterior dermatonal distribution. [PMHx]: * He has a history of osteomyelitis of the (R) foot treated with medical debridment and bone sampling. * HTN for which he takes amlodipine 5mg and Losartan 100 mg * Long standing non-pitting edema in the lower extremities bilaterally. * Degenerative joint disease (usually follows up w/ Dr. Underwood) [PSHx]: * Surgical debridment of the (R) foot for osteomyelitis. 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 He is unable to ambulate independently w /o walker assistance. [FHx]: * FATHER (HTN, CAD). ; Cause: CVA (cerebral vascular accident). * MOTHER (cancer). REVIEW OF SYSTEMS: [General]: Sweating (); Fever or chills (); Fatigue (X) [Eyes]: Visual Changes (); Pain (); Redness () [ENT]: Headaches (); hoarseness (); sore throat (); epistaxis (); sinus symptoms (X); hearing loss (); tinnitus () [CVS]: Chest Pain (); Edema (X); PND (); Orthopnea (); Palpitations (); Claudication () [Respiratory]: Cough (X); SOB (X); Wheezing (); Hypersomnolence () [GI]: Abdominal Pain (); Stool changes (); Nausea/Vomiting (); Diarrhea (); Heartburn (); Blood in Stool () []: Dysuria (); Frequency (); Hematuria (); Discharge (); Menstrual Problems ( ); [MSK]: Arthralgias (X); Arthritis (X); Joint Swelling (X); Myalgias (); Back Pain () [Heme/Lymph]: Bleeding (); Bruising (); Clotting (); Transfusions (); Lymph Node Swelling (); [Endo]: Polyuria (); Polydipsia (); Polyphagia (); Heat/Cold Intolerance (); [Derm]: Rash (X); Pruritus (X) [Neuro]: Weakness (); Seizures (); Paresthesias (); Tremor (); Syncope (); [Psych]: Anxiety (); Depression (); Hallucinations (); Claustrophobia () [All/Imm]: NKDA MEDICATIONS: Current Medications Sig/Fany Start time Last Medication Dose Route Stop Time Status Admin Acetaminophen 1,000 MG Q6P PRN 07/07 0930 AC N/A 1 UNIT IV Amlodipine Besylate 5 MG DAILY 07/07 1000 AC 07/07 PO 0849 Ascorbic Acid 500 MG DAILY 07/07 1000 AC 07/07 PO 0849 Cholecalciferol 1,000 IU DAILY 07/07 1000 AC PO Enoxaparin Sodium 40 MG DAILY 07/07 1000 AC 07/07 SC 0849 Ibuprofen 7.5 MG DAILY 07/07 1000 CAN PO Ketorolac 15 MG Q8P PRN 07/07 0030 DC Tromethamine IV Ketorolac 0 .STK-MED ONE 07/06 2158 DC Tromethamine .ROUTE Ketorolac 30 MG ONCE ONE 07/06 1714 DC 07/06 Tromethamine IV 07/06 Losartan Potassium 100 MG DAILY 07/07 1000 AC 07/07 PO 0849 Meloxicam 7.5 MG DAILY 07/07 1000 AC 07/07 PO 0849 Multivitamins 1 TAB DAILY 07/07 1000 AC 07/07 Therapeutic PO 0849 Nystatin 1 DRAGAN BID 07/07 0024 AC 07/07 TOP 0850 Valacyclovir HCl 1,000 MG TID 07/07 0030 AC 07/07 PO 0850 Objective Objective: VITALS: Vital Signs Date Time Temp Pulse Resp B/P Pulse O2 O2 Flow FiO2 Ox Delivery Rate 07/07 1313 99.6 77 20 150/80 97 Room Air 07/07 1121 Room Air 07/07 0849 170/80 07/07 0849 170/80 07/07 0728 98.2 75 20 170/80 94 Room Air 07/07 0300 97 Room Air 07/07 0236 98.2 86 20 180/90 97 Room Air 07/07 0133 98.5 67 18 169/74 99 Room Air 07/07 0108 98.2 74 18 175/78 98 Room Air 07/06 2156 98.5 85 18 178/79 99 Room Air 07/06 2130 Room Air 07/06 1701 98.5 85 18 183/81 98 Room Air Intake & Output 07/07 1600 07/07 0800 07/07 0000 Intake Total 100 Output Total 600 200 700 Balance -600 -100 -700 Intake, IV 0 Intake, Oral 100 Number 0 Bowel Movements Output, Urine 600 200 700 Patient 400 lb 395 lb Weight PHYSICAL EXAM: [General Appearance]: Dress: (x) nl hygiene Affect: (x) nl affect, not flat, blunted, or expansive MSE: Oriented in Time, Person, Place (x) [Eyes] General: (X) nl conjunctiva & lids Pupils: (X) equal, round, and reactive Fundus: () nl discs & vessels (N/A) Vision: (X) acuity & gross trevizo intact Abnormals: Increased lacrimation [ENT]: External: (X) no scars, lesions, masses. Otoscopic: () nl canals, tympanic membranes (N/A) Hearing: () nl to finger rub (N/A) Oropharynx: () nl teeth, tongue, palate, pharynx. (N/A) Abnormals: Sinus congestion [Neck]: External: (X) no tracheal deviation Palpation: () no masses or crepitus (N/A) Thyroid: () no 'megaly or tenderness. (N/A) Abnormals: [GI]: Palpation: (X) no masses or tenderness (X) no hep/splenomegaly Auscultation: (X) nl bowel sounds Percussion: () no shifting dullness (N/A) Anus/rectum : () no abnormalities or masses (N/A) () heme negative stool (N/A) Abnormals: [Respiratory]: Effort: (X) nl without retractions Percussion: () no dullness or hyperresonance (N/A) Palpation: () no fremitus (N/A) Auscultation: (X) CTAP w/o W, R, or R Abnormals: [CVS]: Palpation: (X) PMI nondisplaced Auscultation: (X) no murmur, gallop, or rub Carotids: () nl intensity w/o bruit (N/A) JVD: (X) no jugular distension Pulses: (X) 2+/= femoral & pedal pulses Edema: () no pedal edema Abnormals: Bilateral lower extremity non-pitting edema (+1) [Neuro]: Orientation: (X) A&O to person, place, time CN: (X) CN II-XII intact. Sensory: (X) nl sensation throughout Reflexes: () 2++ and symmetrical throughout. (N/A) Abnormals: [Skin]: () no rashes, lesions, ulcers (X) nl turgor Abnormals: pustulated, crusted + open blisters in a dermatonal distribution w/i the lower left posterior region. [Chest/Breast]: (X) nl inspection & palpation [Lymph Nodes]: (X) no axillary, inguinal, cervical, or submandibular LAD. []: () nl external genitalia [if applicable] () nl vaginal tone, mucosa [if applicable] () no cervical motion tenderness [if applicable] () nl penis & scrotal contents [if applicable] () nl prostate size & texture [if applicable] Abnormals: [Psych]: (X) nl cognition (X) MMSE (X) nl mood and affect Abnormals: [MSK]: Inspection ROM Strength Tone (X if normal) Abnormals Upper Extremity X X X X Lower Extremity X X X X [Gait]: () nl gait and station (unable to assess) Results Results: Laboratory Tests 07/07/16 0710: Vitamin B12 244 07/07/16 0710: 25-OH Vitamin D Total 25.1 L, TSH 1.900 07/06/162019: Urine Color YEL, Urine Clarity CLEAR, Urine pH 6.5, Ur Specific [place] 1.010, Urine Protein NEG, Urine Ketones NEG, Urine Nitrite NEG, Urine Bilirubin NEG, Urine Urobilinogen 0.2, Ur Leukocyte Esterase TRACE H, Ur Microscopic SEDIMENT EXAMINED, Urine WBC 1-3 H, Urine Hemoglobin NEG, Urine Glucose NEG 07/06/16 1757: Anion Gap 12, Estimated GFR > 60, BUN/Creatinine Ratio 21.1, Glucose 92, Calcium 9.6, Total Bilirubin 0.9, AST 28, ALT 36, Alkaline Phosphatase 100, Total Protein 6.8, Albumin 4.1, Globulin 2.7, Albumin/Globulin Ratio 1.5, CBC w Diff NO MAN DIFF REQ, RBC 4.85, MCV 89.7, MCH 29.5, RDW 14.7 H, MPV 9.5, Gran % 77.3 H, Lymphocytes % 9.3 L, Monocytes % 12.5 H, Eosinophils % 0.8, Basophils % 0.1, Absolute Granulocytes 6.4, Absolute Lymphocytes 0.8 L, Absolute Monocytes 1.0 H, Absolute Eosinophils 0.1, Absolute Basophils 0, PUBS MCHC 32.9 L Microbiology 07/06 2019 URINE ROUT: Urine Culture - RES GRAM NEGATIVE RODS Assessment/Plan Assessment: Mr. Josué Machuca is a 66 y.o. male that presented to the sisters w/ acute on chronic onset of (L) knee and (L) hip weakness which resulted in loss of ability to stand temporarily. The patient is severely overweight w/ surprisngly good metabolic chemistry panals. However, he has a history of osteomyelitis, HTN, hyperlipidemia, and degenerative joint disease. He is presenting with what appears to be a shingles outbreak as well. DVT Prophylaxis: Lovenox The pt's (L) knee and hip pain are likely related to his arthritis/weight induced degeneration of the synovium based on hip/knee xray vs. septic arthritis (r/o no clinical symptoms or signs of leukocytosis w/ redness, pain on palpation ) vs. gouty arthritis (r/o due to no erythema, pain, or increase in temperature around the joints) vs. rheumatoid arthritis (r/o based on clinical sx and signs + joints affected makes this unlikely). Plan: Problem #1: (L) Knee and Hip Pain * Likely Osteoarthritic changes due to weight, clinical sx, and imaging. * To prevent kidney injury (due to history of HTN), decrease NSAID dose and suplement w/ Tylenol #3 if pain persists. * Likely refer pt to [facility] for therapy related to ambulation out of home and in home. * Possible education on weight loss options if the pt seems receptible to this. Problem #2: Rash/Blistering - (L) lower posterior lumbar region. * Likely Herpes Zoster - Shingles. * Valacyclovir 1000mg TID PO for 7 days (Currently Day 1) * Contact and droplet percaution. * Wait for crusting of the blisters to remove contact percaution. Problem #3: HTN * Continue amlodipine 5mg * Continue Losartan 100mg Problem #4: Gram Negative Rods in Urine * Likely bacterurea. * Monitor pt for fever or flu like symptoms. * No leukocytosis to support treatment initiation. Problem #5: Vitamin D Deficiency * Supplement Vitamin D to improve levels. * Followup w/ PCP
[2016-07-07 21:40] VITALS: BP 170/74
[2016-07-08 06:52] VITALS: BP 162/80
--- NOTE | 2016-07-08 07:25 | PN- Housestaff ---
RONAL COVINGTON 07/08/16 0724: Subjective Follow-up For: - Herpes zoster infection Subjective: He was comfortable this morning. He did not have any complaints. Pain was adequately controlled. Vitals were stable overnight. Blood pressure was slightly elevated, and unfortunately an extra dose of amlodipine was not given last night. Increased the dose of antihypertensives. Continue to monitor closely. Not on any contact precautions at this time, as per hospital policy. Review of Systems Constitutional: Reports: see HPI. Objective Last 24 Hrs of Vital Signs/I&O Vital Signs Date Time Temp Pulse Resp B/P Pulse O2 O2 Flow FiO2 Ox Delivery Rate 07/08 0652 98.6 80 20 162/80 95 Room Air 07/07 2140 99.4 72 20 170/74 95 Room Air 07/07 1313 99.6 77 20 150/80 97 Room Air 07/07 1121 Room Air 07/07 0849 170/80 07/07 0849 170/80 07/07 0728 98.2 75 20 170/80 94 Room Air Intake & Output 07/08 0800 07/08 0000 07/07 1600 Intake Total 650 900 Output Total 252 703 8659 Balance -225 -250 -175 Intake, IV 300 Intake, Oral 650 600 Number 1 Bowel Movements Output, Urine 427 561 8144 Physical Exam General Appearance: No Acute Distress Other Physical Findings: General Exam: AAOx3, No acute distress, Skin: Rashe on lumbosacral region(vescicular and crusting lesion), no breakdown HEENT: PERRLA, EOMI Neck: Supple, No JVD No cervical lymphadenopathy CVS: Reg Rate, Normal S1,S2, No MGR Resp: Normal air entry, no ronchi/rales Abdomen: Soft, No tenderness, Normal Bowel Sounds Neuro: Normal Speech, Strength 5/5 b/l x 4 extremities, Sensation intact, CN III -XII NL, Reflexes 2+ Extremities: No cyanosis, pedal edema Current Medications: Current Medications Sig/Fany Start time Last Medication Dose Route Stop Time Status Admin Acetaminophen 1,000 MG Q6P PRN 07/07 0930 AC N/A 1 UNIT IV Amlodipine Besylate 10 MG DAILY 07/08 1000 AC PO Amlodipine Besylate 5 MG DAILY 07/07 1000 DC 07/07 PO 0849 Ascorbic Acid 500 MG DAILY 07/07 1000 AC 07/07 PO 0849 Cholecalciferol 1,000 IU DAILY 07/07 1000 AC 07/07 PO 1652 Enoxaparin Sodium 40 MG DAILY 07/07 1000 AC 07/07 SC 0849 Ketorolac 15 MG Q8P PRN 07/07 0030 DC Tromethamine IV Losartan Potassium 100 MG DAILY 07/07 1000 AC 07/07 PO 0849 Meloxicam 7.5 MG DAILY 07/07 1000 AC 07/07 PO 0849 Multivitamins 1 TAB DAILY 07/07 1000 AC 07/07 Therapeutic PO 0849 Nystatin 1 DRAGAN BID 07/07 0024 07/07 TOP 2116 Patient Medication 1 ED .STK-MED ONE 07/07 1331 DC Teaching ED 07/07 1332 Valacyclovir HCl 1,000 MG TID 07/07 29 AC 07/07 PO 2114 Assessment/Plan Assessment: He is an older man w/ a PMH of bilateral lower extremity swelling is being evaluated for multiple falls, pain in bilateral knees and hip. Admission diagnosis: #1 deconditioning #2 herpes zoster (non disseminated). Below is the problem list and plan: #1 multiple falls-likely due to deconditioning from obesity. Also has osteoarthritis at multiple joints, likely from obesity. Physical therapy evaluation and treatment. History of corticosteroid injections (intra-articular ). No radiological tests such as CT scan-head indicated at this time. #2 pain management-has been using NSAIDs for a long time, and would be prudent to limit the use of NSAIDs view of kidney injury. Tylenol 1000 mg 3 times a day. Meloxicam at a low-dose. Monitor for GI symptoms. #3 rash-currently vesicular and several crusted lesions found on left lumbosacral region not crossing the midline. Has been started on valacyclovir 1 g 3 times a day. Continue antiviral for a total of 7 days. Pain medication as needed. Contact precautions. #4 hypertension-currently on 100 mg losartan and 10 mg amlodipine.Continue to monitor closely. May add hydrochlorothiazide 12.5 mg in addition to current regimen. Which can be converted to losartan/hydrochlorothiazide commendation. Salt restricted diet. #5 obesity-blood sugar levels within normal limits. He is likely an insulin sensitive individual. #6 DVT prophylaxis-Lovenox. Problem List: 1. Intertriginous candidiasis 2. Herpes zoster Pain Ratin Pain Location: Bilateral lower extremities Pain Goal: Pain 4 or less Pain Plan: Tylenol when necessary Tomorrow's Labs & Rationales: No labs necessary. CYNTHIA SALCEDO MD 07/08/16 1100: Attending MD Review Statement Attending Statement Attending MD Statement: examined this patient, discuss w/resident/PA/WEB MOBILE DESIGNER, agreed w/resident/PA/WEB MOBILE DESIGNER, reviewed EMR data (avail), discussed with nursing, discussed with case mgmt, reviewed images, amended to note Attending Assessment/Plan: Patient seen and examined, feels tired, could not sleep well last night. Pain is not bad. Vital Signs Date Time Temp Pulse Resp B/P Pulse O2 O2 Flow FiO2 Ox Delivery Rate 07/08 1053 72 188/82 07/08 1053 72 188/82 07/08 0652 98.6 80 20 162/80 95 Room Air 07/07 2140 99.4 72 20 170/74 95 Room Air 07/07 1313 99.6 77 20 150/80 97 Room Air 07/07 1121 Room Air on exam; aox3, nad. cv; s1,s2, rrr. resp; clear abd; soft, nt, bs+ ext; no edema. no labs. A/P; 66-year-old male with past medical history significant for hypertension, osteoarthritis, history of ostium myelitis in the past who is admitted with near fall. Patient had difficulty ambulating secondary to pain in bilateral knees. He also has herpes zoster rash. Pain is relatively well controlled. The rash looks almost the same. At this point we'll continue the current pain regimen as well as Valtrex. Patient to complete a total of seven-day course of Valtrex. Patient has been seen by physical therapy and they're recommending rehabilitation. His blood pressure was not well-controlled therefore his amlodipine was increased to 10 mg. We offered melatonin to help him better sleep at night but he does not want that. Continue all other current medications. DVT prophylaxis: Lovenox. Disposition possibly discharge to rehabilitation tomorrow.
[2016-07-08 12:08] VITALS: BP 172/98
[2016-07-08] MEDS ORDERED: VALTREX500 M1 PO ×2 (13:39→13:47)
[2016-07-08] MEDS ORDERED: TYLENOL EXTRA500 M2 PO (13:47)
[2016-07-08 13:57] VITALS: BP 160/60
[2016-07-08] MEDS ORDERED: AMLODIPINE BESY10 M1 PO (14:02)
[2016-07-08] MEDS ORDERED: B-121000 MC3 PO (14:08)
[2016-07-08] MEDS ORDERED: VITAMIN D1000 UNI1 PO (14:08)
[2016-07-08 22:40] VITALS: BP 160/80
[2016-07-09 06:30] VITALS: BP 160/84
--- NOTE | 2016-07-09 08:13 | PN- Housestaff ---
XAVIER BEAULIEU,[facility] 07/09/16 0812: Subjective Follow-up For: herpes zoster infection Hypertension Subjective: I saw and examined the patient today morning. He is doing better, reports left leg pain 4/10, thrombing in nature. Otherwise comfortable, no headache, nausea, vomiting, chest pain, shortness of breath, palpiatations, shortness of breath. Received his BP medications yesterday and remains stable for now. Review of Systems Constitutional: Reports: see HPI, malaise, weakness. Denies: diaphoresis, fever. EENTM: Reports: see HPI. Skin: Reports: erythema, lesions. Comments: ROS negative except the above. Objective Last 24 Hrs of Vital Signs/I&O Vital Signs Date Time Temp Pulse Resp B/P Pulse O2 O2 Flow FiO2 Ox Delivery Rate 07/09 0630 98.6 64 20 160/84 95 Room Air 07/08 2240 99.4 69 20 160/80 97 07/08 1357 97.5 75 20 160/60 97 Room Air 07/08 1208 172/98 07/08 1053 72 188/82 07/08 1053 72 188/82 Intake & Output 07/09 1600 07/09 0800 07/09 0000 Intake Total 120 700 Output Total 750 800 Balance -630 -100 Intake, Oral 120 700 Number 0 Bowel Movements Output, Urine 750 800 Physical Exam General Appearance: Alert, Oriented X3, No Acute Distress Skin: herpetic rash on the left flank region around L5 dermatome. HEENT: Atraumatic, PERRLA, EOMI Neck: Supple, No JVD Cardiovascular: Regular Rate, Normal S1, Normal S2, No Murmurs Lungs: Clear to Auscultation, Normal Air Movement Abdomen: Normal Bowel Sounds, Soft, No Tenderness Neurological: Normal Speech, Normal Tone, Sensation Intact Extremities: No Clubbing, No Cyanosis, pedal edema 2+, more on the left side and tightness in the muscle present Vascular: Normal Pulses, Pulses Symmetrical Current Medications: Current Medications Sig/Fany Start time Last Medication Dose Route Stop Time Status Admin Acetaminophen 650 MG ONCE ONE 07/09 0100 DC 07/09 PO 07/09 010 0051 Acetaminophen 1,000 MG Q6P PRN 07/07 0930 AC N/A 1 UNIT IV Amlodipine Besylate 10 MG DAILY 07/08 1000 AC 07/08 PO 1053 Ascorbic Acid 500 MG DAILY 07/07 1000 AC 07/08 PO 1052 Cholecalciferol 1,000 IU DAILY 07/07 1000 AC 07/08 PO 1052 Cyanocobalamin 250 MCG DAILY 07/08 1000 AC 07/08 PO 1052 Enoxaparin Sodium 40 MG DAILY 07/07 1000 AC 07/08 SC 1053 Losartan Potassium 100 MG DAILY 07/07 1000 AC 07/08 PO 1053 Meloxicam 7.5 MG DAILY 07/07 1000 AC 07/08 PO 1056 Multivitamins 1 TAB DAILY 07/07 1000 AC 07/08 Therapeutic PO 1052 Nystatin 1 DRAGAN BID 07/07 0024 AC 07/08 TOP 2104 Patient Medication 1 ED .STK-MED ONE 07/08 1354 DC Teaching ED 07/08 1355 Valacyclovir HCl 1,000 MG TID 07/07 0030 AC 07/08 PO 210 Assessment/Plan Assessment: He is an older man w/ a PMH of bilateral lower extremity swelling is being evaluated for multiple falls, pain in bilateral knees and hip. Admission diagnosis: #1 deconditioning #2 herpes zoster (non disseminated). Below is the problem list and plan: #1. multiple falls-likely due to deconditioning from obesity. Also has osteoarthritis at multiple joints, likely from obesity. Physical therapy evaluated and suggested STR. History of corticosteroid injections (intra- articular). No radiological tests such as CT scan-head indicated at this time. #2. pain management-has been using NSAIDs for a long time, and would be prudent to limit the use of NSAIDs view of kidney injury. Tylenol 1000 mg 3 times a day. Meloxicam at a low-dose. Monitor for GI symptoms. #3. rash-currently vesicular and several crusted lesions found on left lumbosacral region not crossing the midline. Has been started on valacyclovir 1 g 3 times a day. Continue antiviral therapy with acyclovir 4/7 days. Pain medication as needed. Contact precautions. #4. hypertension-currently on 100 mg losartan and 10 mg amlodipine.Continue to monitor closely. BP remains stable overnight. No additional changes to the current antihypertensive regimen made today. Salt restricted diet is recommended. #5 obesity-blood sugar levels within normal limits. He is likely an insulin sensitive individual. #6. Asymmetric swelling of lower extremities (L>R): He does have left calf pain, throbbing in nature, 4/10, new. we checked a D-Dimer which was 333, Doppler ultrasound of left extremity ruled out DVT today. #7 DVT prophylaxis-Lovenox. Problem List: 1. Essential hypertension 2. Obesity 3. Fall 4. Gait abnormality 5. Herpes zoster Pain Ratin Pain Location: left leg Pain Goal: Pain 4 or less Pain Plan: tylenol Tomorrow's Labs & Rationales: NONE LIS LYONS MD 07/09/16 1022: Attending MD Review Statement Attending Statement Attending MD Statement: examined this patient, discuss w/resident/PA/FARMWORKER ANIMAL, agreed w/resident/PA/FARMWORKER ANIMAL, reviewed EMR data (avail), discussed with nursing, discussed with case mgmt, reviewed images Attending Assessment/Plan: Patient is doing okay. He has some pain in his calf and there appears to be some tenderness there. He is a 66-year-old with hypertension, dermatomal zoster getting antivirals as active issues are the blood pressure which we think is a contribution of the NSAID as well as now this calf pain. We will get an ultrasound and make sure there is no DVT. We'll continue the valacyclovir for the zoster to complete the course. His UA is negative and his urine culture has Klebsiella Pneumoniae he is asymptomatic from that point and I think he has asymptomatic bacteriuria with no indication for antibiotics. His Norvasc was just increased to 10 mg a day so that needs to be followed up closely. He is very keen on the NSAID use despite explaining the side effects of hazel and hypertension and we need to follow that closely.
--- NOTE | 2016-07-09 12:38 | ULTRASOUND REPORT ---
EXAMINATION: US TRIPLEX LOWER EXTREMITY, LEFT CLINICAL INFORMATION: Left calf pain and tightness COMPARISON: 07/12/2011 TECHNIQUE: Color-flow triplex imaging with spectral analysis and compression Doppler were performed on the left lower extremity. FINDINGS: Respiratory variation, normal compression and augmented flow are noted throughout the lower extremity. The visualized common femoral vein, superficial femoral vein, profunda femoral vein, popliteal vein and midcalf peroneal and posterior tibial venous segments show no evidence of deep venous thrombosis. There is no Maria's cyst. IMPRESSION: Normal triplex scan without evidence of deep venous thrombosis involving the left lower extremity.
[2016-07-09 13:55] VITALS: BP 164/88
[2016-07-09 15:16] VITALS: BP 164/88
== END 2016-07-09 16:13 | DRG 596 ==
LOC: ENRESERVTM → ENRESERVDT → ERH 16:55 → 2NA 23:03 → ENPENDDIS 23:03 → ERHI 23:03 → EDBEDREQ 07-07 01:04 → 2NA 07-07 02:32
PROVIDERS: Physician Assistant; ADMIT Student in an Organized Health Care Education/Training Program
DX: B02.9 Zoster without complications (principal); Z68.42 Body mass index [BMI] 45.0-49.9, adult; I10 Essential (primary) hypertension; M19.90 Unspecified osteoarthritis, unspecified site; E66.01 Morbid (severe) obesity due to excess calories; R26.9 Unspecified abnormalities of gait and mobility; N40.0 Benign prostatic hyperplasia without lower urinary tract symptoms; B37.2 Candidiasis of skin and nail; E55.9 Vitamin D deficiency, unspecified
CPT/HCPCS: 2NAP; 83921; ERO; 73502-LT; 73562-LT; 81001; 87086; 93005; 93010; 97116-GO; 97161-GP; 97530-GO; J0131; J1650; J1885; J3490